=== PATIENT | female | born 1960 | race Caucasian/White ===

== ENCOUNTER 2017-12-29 06:51 | Outpatient (CLI) | payer MEDICAID ==
[~2017-12-29] VITALS: Ht 160 cm; Wt 104.1 kg
--- NOTE | ~2017-12-29 | HEMODYNAMI ---
PATIENT:ALONSO AG MEDICAL RECORD: [id number] : 60 LOCATION:[facility] ADMISSION DATE: 12/29/17 Generatedon:12/29/20179:37 Patient name: ALONSO AG Patient #: [id number] SSN: [id number] : 1960 Date of study: 12/29/2017 Page: Of Hemodynamic Procedure Report Patient Data Patient Demographics Procedure consent was obtained First Name: ALONSO Gender: Female Last Name: KIMBERLI : 1960 Middle Initial: B Age: 57 year(s) Patient #: [id number] Race: SSN: [id number] Additional ID: [id number] Contact details Address: [address] [place] [address] State: [place] City: [place] Zip code: [address] Past Medical History Allergies Allergen Reaction Date Comments Reported Other allergy 05/07/2014 Keflex Admission Admission Data Admission Date: 12/29/2017 Admission Time: 6:51 Arrival Date: 12/29/2017 Arrival Time: 9:00 Admit Source: Other Insurance Payor: Private health insurance Height (in.): 65 BSA: 2.1 (m2) Height (cm.): 165.1 BMI: 38.11 (kg/m2) Weight (lbs.): 229 Weight (kg.): 103.87 Procedure Procedure Types Cath Procedure Diagnostic Procedure [facility] w/Coronaries Sedation Charges Moderate Sedation up to 15 minutes Procedure Description Procedure Date Procedure Date: 12/29/2017 Procedure Start Time: 9:24 Procedure End Time: 9:35 Procedure Staff Name Function Greg De La Paz MD Performing Physician Senait Hodges RT Monitor Sophia Cage RT Scrub Brett Calderón RN Nurse Procedure Data Cath Procedure Fluoroscopy Diagnostic fluoroscopy Total fluoroscopy Time: 1.9 time: 1.9 min min Diagnostic fluoroscopy Total fluoroscopy dose: 221 dose: 221 mGy mGy Contrast Material Contrast Material Type Amount (ml) Isovue 300 54 Entry Location Entry Primary Successful Side Size Upsize Upsize Entry Closure Chong ccessful Closure Location (Fr) 1 (Fr) 2 (Fr) Remarks Device Remarks Radial Right 6 Fr Mechanical artery Short Compression Estimated blood loss: 5 ml Diagnostic catheters Device Type Used For End Catheter Placement DIAGNOSTIC [place] 110cm 5 Multi-vessel Fr catheter ([id number]) Angiography Procedure Complications No complications Procedure Medications Medication Administration Route Dosage 0.9% NaCl I.V. 100 ml/hr Oxygen etCO2 Nasal cannula 2 l/min Heparin Flush Bag added to field 2 bags (1000units/500ml NS) Lidocaine 2% added to field 20 Radial Cocktail added to field 1 syringe (Verapomil 2mg/Nitro 400mcg/Heparin 1500units) Versed I.V. 1 mg Fentanyl I.V. 50 mcg Versed I.V. 2 mg Fentanyl I.V. 50 mcg Radial Cocktail I.A. 1 syringe (Verapomil 2mg/Nitro 400mcg/Heparin 1500units) Hemodynamics Rest BSA: 2.1 (m2) O2 Consumption: Estimated: 205.62 (ml/min) O2 Consumption indexed: Estimated:97.91 (ml/min/m) Heart Rate: 76 (bpm) Pressure Samples Time Site Value (mmHg) Purpose Heart Use Rate(bpm) 9:28 LV 145/17,33 Snapshot 53 Gradients Valve Time Site Site Mean SEP/DFP Peak To Heart Use 1 2 (mmHg) (sec/min) Peak Rate (mmHg) (bpm) Aortic 9:29 LV AO 73 Snapshots Pre Cath Intra NCS Post Cath Vital Signs Time Heart Resp SPO2 etCO2 NIBP (mmHg) Rhythm Pain Sedation Rate (ipm) (%) (mmHg) Status Level (bpm) 9:03:26 70 19 96 42.9 130/69(97) NSR 0 (11) 10(A) , No pain 9:07:46 73 14 96 42.1 123/66(89) NSR 0 (11) 10(A) , No pain 9:12:04 72 15 96 41.4 125/70(97) NSR 0 (11) 10(A) , No pain 9:16:25 71 19 93 37.6 120/63(88) NSR 0 (11) 10(A) , No pain 9:20:47 70 18 93 36.9 116/59(94) NSR 0 (11) 10(A) , No pain 9:25:01 68 18 93 39.1 109/62(101) NSR 0 (11) 10(A) , No pain 9:30:16 70 17 93 44.4 108/63(79) NSR 0 (11) 9(A) , No pain 9:34:32 73 18 92 32.4 120/61(97) NSR 0 (11) 9(A) , No pain Medications Time Medication Route Dose Verified Delivered Reason Notes Effectiveness by by 8:59:29 0.9% NaCl I.V. 100 Brett Brett Per ml/hr Lorigan Lorigan physician RN RN 8:59:40 Oxygen etCO2 2 l/min Brett Brett Per Nasal Stephane Calderón physician cannula RN RN 8:59:54 Heparin Flush added 2 bags Brett Brett used for Bag to Lorigan Lorigan procedure (1000units/500ml field RN RN NS) 9:00:10 Lidocaine 2% added 20ml Brett Brett for local to vial Lorigan Lorigan anesthetic field RN RN 9:02:31 Radial Cocktail added 1 Brett Brett used for (Verapomil to syringe Lorigan Lorigan procedure 2mg/Nitro RN RN 400mcg/Heparin 1500units) 9:08:43 Versed I.V. 1 mg Brett Brett for sedation Stephane Calderón RN RN 9:08:53 Fentanyl I.V. 50 mcg Brett Brett for sedation Stephane Calderón RN RN 9:26:22 Versed I.V. 2 mg Brett Brett for sedation Stephane Calderón RN RN 9:26:29 Fentanyl I.V. 50 mcg Brett Brett for sedation Stephane Calderón RN RN 9:26:41 Radial Cocktail I.A. 1 Brett Greg for (Verapomil syringe Stephane De La Paz MD vasodilation 2mg/Nitro RN 400mcg/Heparin 1500units) Procedure Log Time Note 8:23:04 Diagnostic Cath Status : Elective 8:30:38 Sophia Cage RT(R) sent for patient. Start room use. 8:47:44 Time tracking: Regular hours (M-F 7:00 - 5:00) 8:47:48 Plan of Care:Hemodynamics will remain stable., Cardiac rhythm will remain stable., Comfort level will be maintained., Respiratory function will remain adequate., Patient/ family verbilizes understanding of procedure., Procedure tolerated without complication., Recovers from procedure without complications.. 8:48:01 Patient received from Pre/Post Procedure Room to CCL 3 Alert and oriented. Tansferred to table in Supine position. 8:48:02 Warm blankets applied, and markos hugger turned on for patient comfort. 8:48:03 Correct patient and procedure confirmed by team. 8:48:04 Signed procedure consent form obtained from patient. 8:48:05 ECG and BP/O2 sat monitors applied to patient. 8:59:13 Vital chart was started 8:59:29 0.9% NaCl 100 ml/hr I.V. was administered by Brett Calderón RN; Per physician; 8:59:40 Oxygen 2 l/min etCO2 Nasal cannula was administered by Brett Calderón RN; Per physician; 8:59:54 Heparin Flush Bag (1000units/500ml NS) 2 bags added to field was administered by Brett Calderón RN; used for procedure; 9:00:10 Lidocaine 2% 20ml vial added to field was administered by Brett Calderón RN; for local anesthetic; 9:02:31 Radial Cocktail (Verapomil 2mg/Nitro 400mcg/Heparin 1500units) 1 syringe added to field was administered by Brett Calderón RN; used for procedure; 9:06:10 Baseline sample Acquired. 9:06:23 Full Disclosure recording started 9:06:30 H&P Date Dictated: 12/29/2017 Within 30 days and on chart., H&P Addendum completed by physician on day of procedure. (MUST COMPLETE FOR ALL OUTPATIENTS). 9:06:31 Pre-procedure instructions explained to patient. 9:06:32 Pre-op teaching completed and patient verbalized understanding. 9:06:33 Family in waiting room. 9:06:34 Patient NPO since Midnight. 9:06:36 Is the patient allergic to Iodine/contrast media? No. 9:06:37 Was the patient premedicated? No 9:06:39 Is patient on blood thinner?No 9:06:40 Patient diabetic? No. 9:06:43 Previous problem with sedation/anesthesia? No ? 9:06:45 Snore? Yes 9:06:46 Sleep apnea? No 9:06:47 Deviated septum? No 9:06:57 Opens mouth fully? Yes 9:06:58 Sticks out tongue? Yes 9:07:01 Airway obstruction? Yes copd 9:07:05 Dentures? Yes in tight 9:07:09 Pre procedure: right dorsailis pedis pulse 2+ Normal; easily identifiable; not easily obliterated 9:07:11 Pre procedure: left dorsailis pedis pulse 2+ Normal; easily identifiable; not easily obliterated 9:07:13 Patient pain scale 0/10 ?. 9:07:18 IV patent on arrival in left forearm with 0.9% NaCl at [facility]. 9:07:20 Lab results completed and on chart. 9:07:24 Right Radial & Right Groin area was prepped with chlora-prep and draped in sterile fashion 9:07:25 Alarms reviewed by R. N. 9:07:26 Sharps counted by scrub and verified by R.N. 9:07:27 Physician arrived 9:07:27 --------ALL STOP TIME OUT------ 9:07:28 Final Timeout: patient, procedure, and site verified with staff and physician. All members of the team are in agreement. 9:07:29 Right Radial & Right Groin site verified by team. 9:07:33 Physical assessment completed. ASA score P 2 - A patient with mild systemic disease as per Greg De La Paz MD. 9:07:37 Sedation plan: IV Moderate Sedation Medication:Versed, Fentanyl 9:07:44 Use device set Radial Dx or PCI 9:07:45 ACIST Syringe (31441) opened to sterile field. 9:07:46 Medline Cath Pack ([id number]) opened to sterile field. 9:07:46 Bag Decanter (2002) opened to sterile field. 9:07:47 DIAGNOSTIC WIRE .035 260cm J wire (443982) opened to sterile field. 9:07:47 ACIST Hand Control (76350) opened to sterile field. 9:07:48 ACIST Manifold (33343) opened to sterile field. 9:07:48 Tegaderm 4 x 4 (1626W) opened to sterile field. 9:07:48 MBrace Wrist Support ([id number]) opened to sterile field. 9:07:50 SHEATH 6Fr Prelude Radial ([id number]) opened to sterile field. 9:07:54 Zero performed for pressure channel P1 9:07:59 Zero performed for pressure channel P1 9:08:43 Versed 1 mg I.V. was administered by Brett Calderón RN; for sedation; 9::53 Fentanyl 50 mcg I.V. was administered by Brett Calderón RN; for sedation; 9:12:46 Admit Source: Other 9:12:52 Arrival Date: 12/29/2017 9:00:00 AM 9:13:00 Insurance Payor : Private health insurance 9:13:05 Patient Height : 65 inches 9:13:31 Patient Weight : 229 lbs 9:24:52 Procedure started. 9:24:55 Local anesthetic to right radial artery with Lidocaine 2% by Greg De La Paz MD.INITIAL ACCESS ONLY 9:25:08 A 6 Fr Short sheath was inserted into the Right Radial artery 9:26:22 Versed 2 mg I.V. was administered by Brett Calderón RN; for sedation; 9::29 Fentanyl 50 mcg I.V. was administered by Brett Calderón RN; for sedation; 9:26:41 Radial Cocktail (Verapomil 2mg/Nitro 400mcg/Heparin 1500units) 1 syringe I.A. was administered by Greg De La Paz MD; for vasodilation; 9:27:25 A DIAGNOSTIC [place] 110cm 5 Fr catheter ([id number]) was advanced over the wire and used for Multi-vessel Angiography. 9:28:49 LV hemodynamics recorded. 9:28:50 LV gram done using VELASQUEZ 9::53 Injector settings: Ml/sec: 5, Volume: 15, 9:29:08 EF : 55 % 9:30:10 LCA angiography performed. 9:30:12 Injector settings: Ml/sec: 3, Volume: 6, 9:31:52 RCA angiography performed. 9:31:55 Injector settings: Ml/sec: 3, Volume: 6, 9:32:52 Catheter removed. 9:33:00 TR BAND Standard ([id number]) opened to sterile field. 9:33:12 Sheath removed intact; hemostasis achieved with Mechanical Compression to the Right Radial artery. 9:33:14 Procedure ended.(Physican Out) 9:34:02 Fluoroscopy time 01.90 minutes. 9:34:24 Fluoroscopy dose: 221 mGy 9:34:24 Flurop Dose total: 221 9:34:37 Contrast amount:Isovue 300 54ml. 9:34:42 Sharps counted by scrub and verified by R.N. 9:34:45 TR band inflated with 10cc of air. 9:34:47 Insertion/operative site no bleeding no hematoma. 9:34:56 Post right radial artery:stable 9:34:57 Post Procedure Pulses reassessed and unchanged 9:35:00 Post procedure rhythm: unchanged. 9:35:04 Estimated blood loss: 5 ml 9:35:05 Post procedure instruction explained to patient.Patient verbalizes understanding. 9:35:06 Patient needs reinforcement of post procedure teaching. 9:35:17 Procedure type changed to Cath procedure, Diagnostic procedure, LHC, LHC w/Coronaries, Sedation Charges, Moderate Sedation up to 15 minutes 9:35:18 Procedure and supply charges have been captured, reviewed, submitted and are correct. 9:35:23 Procedure Complication : No complications 9:35:25 Vital chart was stopped 9:35:28 See physician's report for complete and final results. 9:35:43 Report given to Pre/Post Procedure Room. 9:35:46 Patient transfered to Pre/Post Procedure Room with Stretcher. 9:35:50 Procedure ended. 9:35:50 Full Disclosure recording stopped 9:35:54 End room use (Document Last) Device Usage Item Name Manufacture Quantity Catalog Number Hospital Part Current M inimal Lot# / Charge Number Stock Stock Serial# Code ACIST Syringe Acist 1 65357 476190 [id number] 2 0 (88697) [employer] Medline Cath Cardinal 1 [id number] 149988 05056 761194 5 Pack Health ([id number]) Bag Decanter Microtek 1 2001S 787466 13506 520897 5 () [employer] Inc. DIAGNOSTIC WIRE St Gerhard 1 [id number] 924048 117188 710992 3 0 .035 260cm J wire (793833) ACIST Hand Acist 1 49610 543172 341197 185836 5 Control (76703) [employer] ACIST Manifold Acist 1 80258 900361 576963 100697 5 (55131) [employer] Tegaderm 4 x 4 3M 1 1626W 344785 228869 282502 5 (1626W) MBrace Wrist Advanced 1 140-0250-00 805121 53214 624078 5 Support Vascular ([id number]) Dynamics SHEATH 6Fr Merit 1 [id number] 760702 830488 007299 5 Prelude Radial Medical ([id number]) DIAGNOSTIC Terumo 1 40-3861 290833 718444 535280 5 [place] 110cm 5 Fr catheter (701087) TR BAND Terumo 1 [id number] 264036 431367 690625 4 0 Standard ([id number]) Signature Audit [place] Stage Time Signature Unsigned Intra-Procedure 12/29/2017 Senait Hodges 9:36:52 AM RT(R) Signatures Monitor : Senait Hodges RT Signature : Date : Time : [id number] [place] [address]
[~2017-12-29 06:51] MED LIST: ASPIRIN325 MG PO; NITROSTAT0.4 MG; OSTEO BI-FLEX1 EAC1 PO; ULTRAM50 MG PO
[2017-12-29] MEDS ORDERED: NORVASC10 MG PO (07:20)
[2017-12-29] MEDS ORDERED: LIPITOR20 MG PO (07:21)
[2017-12-29] MEDS ORDERED: VENTOLIN HFA18 GM INH (07:22)
[2017-12-29 07:31] VITALS: BP 143/71; Ht 160 cm; Wt 104.1 kg
[2017-12-29 08:10] LABS: BASOPHILS 0.1 % (0-2); EOSINOPHILS 0.3 % (0-7); HEMATOCRIT 35.7 % (36.0-48.0); HEMOGLOBIN 12.2 g/dL (12-16); IMMATURE GRANULOCYTES 0.1 % (0-5); LYMPHOCYTES 28.9 % (15-50); MCH 30.7 pg (26.0-34.0); MCHC 34.2 g/dL (31.0-37.0); MCV 89.9 fL (80.0-100.0); MEAN PLATELET VOLUME 10.5 fL (7.4-10.4); MONOCYTES 10.5 % (2-11); NEUTROPHILS 60.1 % (40-80); PLATELET COUNT 295 10x3/uL (130-400); RBC 3.97 10x6/uL (4.00-5.40); RDW 12.5 % (11.5-14.5); WBC 7.3 10x3/uL (4.8-10.8)
[2017-12-29 08:20] LABS: CALC OSMOLALITY 281 mosm/kg (275-300); CALCIUM 9.4 mg/dL (8.5-10.1); CARBON DIOXIDE 26.3 mmol/L (21.0-32.0); CHLORIDE - SERUM 106 mmol/L (98-107); CREATININE - SERUM 0.5 mg/dL (0.6-1.3); GLUCOSE 100 mg/dL (74-106); POTASSIUM - SERUM 4.1 mmol/L (3.5-5.1); SODIUM 141 mmol/L (136-145); UREA NITROGEN 15 mg/dL (7-18); eGFR NON AFRICAN AMERICAN > 90 mL/min (90-120)
== END 2017-12-29 12:10 | disposition home or self-care (01) ==
LOC: D.CATH 06:51
PROVIDERS: Internal Medicine Cardiovascular Disease
DX: I20.9 Angina pectoris, unspecified (principal); Z01.812 Encounter for preprocedural laboratory examination

== ENCOUNTER → 2018-02-21 20:47 | Outpatient (CLI) | payer MEDICAID ==
[2017-12-29 07:31] VITALS: BMI 40.6
[~2018-02-21 20:47] MED LIST changes: +LIPITOR20 MG PO; +NORVASC10 MG PO; +VENTOLIN HFA18 GM INH
== END | disposition home or self-care (01) ==
LOC: D.MAMMO 11:45
DX: Z12.31 Encounter for screening mammogram for malignant neoplasm of breast (principal)

== ENCOUNTER → 2020-01-14 11:13 | Outpatient (CLI) | payer BC ==
[2017-12-29 07:31] VITALS: BMI 40.6
== END | disposition home or self-care (01) ==
LOC: D.HCCECHO 11:13
PROVIDERS: ATTEND Internal Medicine Cardiovascular Disease
DX: R60.0 Localized edema (principal)